=== PATIENT | male | born 1985 | race African-American/Black ===

== ENCOUNTER 2017-10-24 16:29 | Emergency (ER) | payer SELFPAY ==
[2017-10-24 16:30] VITALS: BP 143/81; PULSE 109; RESP 16; TEMP 36.6; O2SAT 98; BMI 32.1
--- NOTE | 2017-10-24 19:06 | EKG12_ITS ---
Test Reason : CP Blood Pressure : / mmHG Vent. Rate : 083 BPM Atrial Rate : 083 BPM P-R Int : 192 ms QRS Dur : 098 ms QT Int : 374 ms P-R-T Axes : 030 033 016 degrees QTc Int : 439 ms Normal sinus rhythm Normal ECG Confirmed by ALICIA PELLETIER MD ([id number]), medical transcription editor BENJAMIN LITTLE ([id number]) on 10/25/2017 1:36:10 PM Referred By: CHANDRAKANT Confirmed By:ALICIA PELLETIER MD
[2017-10-24 19:14] VITALS: BP 133/83; PULSE 85; RESP 16; O2SAT 97
[2017-10-24 19:15] VITALS: O2SAT 97
--- NOTE | 2017-10-24 19:16 | ED.VISSUMM ---
- ER Visit Summary Date of Service: 10/24/17 Chief Complaint: Chest pain History of Present Illness: The patient is a 31 M who presents for chest pain since yesterday morning. Patient states onset was while he was brushing his teeth and accidentally made himself vomit. He is having burning chest pain and pain that feels like indigestion, worse with eating. He has had decreased oral intake because of the pain and states he is very hungry. He has tried Prilosec without relief. He denies any fever, shortness of breath, cough or other associated complaints other than the chest pain. It does not change with position. Patient has no medical problems other than GERD. He is a smoker. Physical Examination: Vital signs: afebrile, hemodynamically stable, no hypoxia on room air General: well nourished, well developed, in no distress, appears uncomfortable Skin: warm, dry, no rash, no pallor, no subcutaneous emphysema in the chest or neck HEENT: normocephalic and atraumatic; PERRL, EOMI, moist mucous membranes Cardiovascular: regular rate and rhythm without murmurs, no peripheral edema, 2+ pulses all distal extremities, no rubs or crunches Respiratory: No increased work of breathing, lungs are clear to auscultation bilaterally, no rales, rhonchi or wheezing Abdominal: Abdomen is soft, tender in the epigastrium with normoactive bowel sounds, no guarding or rebound, no masses MSK: Moves all extremities, no deformities, normal strength Neuro: Awake and alert, oriented ?4. No facial droop, sensation and motor function intact and symmetric Test Results: Abnormal Lab Results 10/24/17 10/24/17 19:20 19:20 WBC 12.3 H RBC 5.28 Hgb 15.5 Hct 46.0 MCV 87.1 MCH 29.4 MCHC 33.7 RDW 15.4 H RDW Differential 49.0 H Plt Count 208 MPV 11.2 Immature Gran % (Auto) 0.100 Neut % (Auto) 57.9 Lymph % (Auto) 33.3 Bradford % (Auto) 7.8 Eos % (Auto) 0.7 Baso % (Auto) 0.2 Absolute Neuts (auto) 7.1 Absolute Lymphs (auto) 4.09 Total Counted Not Reportable Sodium 138 Potassium 3.7 Chloride 105 Carbon Dioxide 24.0 Anion Gap 9 BUN 15 Creatinine 0.99 Estim Creat Clear Calc 113.03 Est GFR (MDRD) Af Amer 111 Est GFR (MDRD) Non-Af 92 BUN/Creatinine Ratio 15.2 Glucose 88 Calcium 9.1 Total Bilirubin 0.50 AST 49 H ALT 38 Alkaline Phosphatase 101 Troponin I < 0.015 Total Protein 8.2 Albumin 4.0 Globulin 4.2 Albumin/Globulin Ratio 1.0 Lipase 82 Clinical Impression(s) from Imaging Studies Chest X-Ray 10/24/17 19:25 IMPRESSION: No acute thoracic pathology. Electronically Signed: Jose Ortiz, at 19:51 EDT Tel , Service support , Abdomen/Pelvis CT 10/24/17 20:41 IMPRESSION: Small hiatal hernia. Left renal cyst. Small fatty umbilical hernia. Electronically Signed: Carl Fairchild DO at 23:32 EDT Tel [phone], Service support , Chest CT 10/24/17 20:41 IMPRESSION: Small hiatal hernia. Electronically Signed: Carl Fairchild DO at 23:23 EDT Tel [phone], Service support , Medications Given Discontinued Medications Al Hydroxide/Mg Hydroxide (Mylanta Ii) 30 ml PO X1 ONE Stop: 10/24/17 19:07 Last Admin: 10/24/17 19:41 Dose: 30 ml Sodium Chloride () 1,000 mls @ 1,000 mls/hr IV .Q1H ONE Stop: 10/24/17 20:05 Last Admin: 10/24/17 19:40 Dose: 1,000 mls/hr Lidocaine HCl (Xylocaine Viscous) 15 ml PO X1 ONE Stop: 10/24/17 19:07 Last Admin: 10/24/17 19:41 Dose: 15 ml Morphine Sulfate () 4 mg IV X1 ONE Stop: 10/24/17 20:42 Last Admin: 10/25/17 00:06 Dose: Multi-Ingredient GI Drug () 1 ea PO X1 ONE Stop: 10/24/17 19:07 Last Admin: 10/24/17 19:41 Dose: 1 ea Ondansetron HCl (Zofran) 4 mg IV X1 ONE Stop: 10/24/17 20:43 Last Admin: 10/25/17 00:06 Dose: Pantoprazole Sodium (Protonix) 40 mg PO X1 ONE Stop: 10/24/17 23:57 Last Admin: 10/25/17 00:11 Dose: 40 mg Sucralfate (Carafate) 1 gm PO X1 ONE Stop: 10/24/17 23:59 Last Admin: 10/25/17 00:11 Dose: 1 gm Emergency Department Course and Treatment: Patient's symptoms occur mainly when he is trying to eat solid foods, and he is very hungry at this time due to decreased p.o. intake from pain. Patient was given a GI cocktail with improvement in his symptoms. Workup was performed showing a chest x-ray without sign of pneumothorax, pneumomediastinum, free air where it did not belong, pneumonia or other acute process. EKG showed no ischemic changes. Troponin negative. Lab work remarkable only for mild leukocytosis of 12.3 without a neutrophil predominance. Patient was feeling better after the GI cocktail, and thus was given a p.o. challenge of a sandwich. With the first bite he had return of severe symptoms. Thus a chest abdomen pelvis CT was performed to look for any pathology that would be causing his severe symptoms. Patient was given morphine and Zofran for additional symptom relief, but declined, as he stated he did not have pain if he was not eating. CT scan showed a small hiatal hernia, which patient states he is always had, but no other acute process to explain his symptoms. Patient wanted to go home, and he was prescribed Protonix and Carafate to use for help with symptoms. He is going to try a liquid diet and advance as tolerated depending on his pain. He will return if any concerns. He was given follow-up with primary care provider and we discussed he may end up needing an EGD performed if this continues to be an issue for him. Treatment Plan: [] Disposition: [] Impression: Acute esophagitis, odynophagia This note was generated with [employer] software. It may contain incorrect words, spelling, and punctuation that were not noted in review of the chart prior to signing ED Disposition - Plan for ED Patient: Disposition: Home or Assisted Living Chief Complaint: Chest Other Instructions: Esophagitis, Discharge Instructions: Eating a Soft Diet, ED GERD Prescriptions: Pantoprazole Sodium [Protonix] 40 mg PO DAILY 30 Days #30 tab Sucralfate [Carafate] 1 gm PO 4X/DAY #60 tab Referrals: Bishop Mondragon MD [STAFF PHYSICIAN] - As soon as possible Care Physician,No Primary [Primary Care Provider] - Additional Instructions: Please take the medications as prescribed to see if that helps with your pain with swallowing. Follow-up with the doctor on this paperwork for a reevaluation. You may need an upper endoscopy, where a doctor looks in your esophagus and stomach with a camera. If you have any worsening of your condition or any new concerning symptoms, please return immediately to the emergency department for another evaluation.
--- NOTE | 2017-10-24 19:25 | RAD_ITS ---
STUDY: X-RAY CHEST REASON FOR EXAM: Male, 31 years old. Chest pain TECHNIQUE: Frontal and lateral views of the chest COMPARISON: 05/25/2014 FINDINGS: The lungs are clear. There are no pleural effusions. There is no pneumothorax. The heart is normal in size. The visualized osseous structures are within normal limits. RAD/Chest PA and Lateral IMPRESSION: No acute thoracic pathology. Electronically Signed: Jose Ortiz, at 19:51 EDT Tel , Service support ,
[2017-10-24 19:30] LABS: Absolute Lymphocyte Count 4.09 X10^3/ul (0.83-4.51); Absolute Neutrophil Count 7.1 X10^3/uL (2.0-7.7); Basophil# 0.03 X10^3/uL; Basophil% 0.2 % (0-1); Eosinophil# 0.08 X10^3/uL; Eosinophils% 0.7 % (0-5); Hemoglobin 15.5 g/dl (13.0-16.5); Lymphocyte # 4.09 X10^3/ul (4.0); Lymphocyte % 33.3 % (19-41); Mean Corp Hgb Conc 33.7 g/gl (32-36); Mean Corpuscular Hgb 29.4 pg (27.0-32.0); Mean Corpuscular Volume 87.1 fL (80-94); Mean Platelet Vol. 11.2 fl (6.2-12.0); Monocyte# 0.96 X10^3/uL; Monocyte% 7.8 % (0-10); Neutrophil # 7.12 X10^3/uL (2.7-7.7); Neutrophil % 57.9 % (47-70); Platelet Count 208 K/mm3 (150-450); RBC Distribution Width CV 15.4 % (11.6-14.6); Red Blood Count 5.28 M/mm3 (4.6-6.2); White Blood Count 12.3 K/mm3 (4.4-11.0)
[2017-10-24 19:31] LABS: POSITIVE COUNT NO; POSITIVE DIFFERENTIAL NO; POSITIVE MORPHOLOGY NO
[2017-10-24] MEDS: 0.9% Normal Saline 1,000 ML 1000 ML IV (19:40)
[2017-10-24] MEDS: Mag Hydrox/Al Hydrox/Simeth 30 ML UDC PO (19:41)
[2017-10-24 19:53] LABS: AST(SGOT) 49 U/L (15-37); Alanine Aminotransfer ALT/SGPT 38 U/L (16-61); Alkaline Phosphatase 101 U/L (45-117); Anion Gap 9 (5-15); BUN 15 mg/dL (7-18); BUN/Creat Ratio 15.2 RATIO (10-20); Calcium,Total 9.1 mg/dL (8.5-10.1); Chloride 105 mmol/L (98-107); Creatinine, Serum 0.99 mg/dL (0.70-1.30); EST Glomerular Filtration Rate 92 mL/min (>60); Est Glom Filt Rate - Afr Amer 111 mL/min (>60); Estimated Creatinine Clearance 113.03 ml/min; Globulin 4.2 g/dL (2.2-4.2); Glucose 88 mg/dL (74-106); Lipase 82 U/L (73-393); Potassium 3.7 mmol/L (3.5-5.1); Protein, Total 8.2 g/dL (6.4-8.2); Sodium Level 138 mmol/L (136-145)
--- NOTE | 2017-10-24 20:41 | CT_ITS ---
STUDY: CT ABDOMEN AND PELVIS WITH CONTRAST REASON FOR EXAM: Male, 31 years old. Esophageal pain RADIATION DOSAGE (If Supplied By Facility): CTDIvol = ( 18.89 ) mGy, DLP = ( 1917.90 ) mGycm TECHNIQUE: Transaxial images were obtained from the dome of the diaphragm to the symphysis pubis without oral contrast. 100ML ml of Isovue 300 contrast was administered. Sagittal and coronal images were reconstructed. Individualized dose optimization techniques were used for this CT. COMPARISON: February 06, 2013 FINDINGS: The visualized lung bases are unremarkable. The visualized portions of the heart are within normal limits. Normal liver. Normal gallbladder and extrahepatic biliary system. Normal spleen. Normal pancreas. Normal bilateral adrenal glands. Normal right kidney. 8 mm cyst in the left kidney. Small hiatal hernia. Normal small intestine. Normal colon. The appendix is visualized and appears normal. Normal abdominal aorta. Normal inferior vena cava. Normal retroperitoneum. Normal urinary bladder. Stable fatty umbilical hernia. Normal osseous structures. CT/Abdomen/Pelvis WITH Contrast IMPRESSION: Small hiatal hernia. Left renal cyst. Small fatty umbilical hernia. Electronically Signed: Carl Fairchild DO at 23:32 EDT Tel [phone], Service support ,
--- NOTE | 2017-10-24 20:41 | CT_ITS ---
STUDY: CT CHEST WITH CONTRAST REASON FOR EXAM: Male, 31 years old. Esophageal pain RADIATION DOSAGE (If Supplied By Facility): CTDIvol = ( 18.89 ) mGy, DLP = ( 1917.90 ) mGycm TECHNIQUE: Transaxial imaging was performed following intravenous administration of 100ML ml of Isovue 300 contrast material. Individualized dose optimization techniques were used for this CT. COMPARISON: None. FINDINGS: The lungs are normal. There is no demonstrated pleural abnormality. Normal heart and pericardium. Normal mediastinum. Normal hilar regions. Normal enhanced pulmonary arteries. Normal aorta arch and descending thoracic aorta. Normal osseous structures. Small hiatal hernia. CT/Chest WITH Contrast IMPRESSION: Small hiatal hernia. Electronically Signed: Carl Fairchild DO at 23:23 EDT Tel [phone], Service support ,
--- NOTE | 2017-10-24 21:40 | ED.RN ---
PT REFUSED MORPHINE AND NAUSEA,ZOFRAN.
[2017-10-24 21:42] VITALS: BP 138/86; PULSE 84; RESP 16; O2SAT 99
[2017-10-24 23:18] VITALS: BP 135/87; PULSE 86; RESP 16; O2SAT 99
--- NOTE | 2017-10-25 00:02 | ED.DEP ---
ED Disposition - Plan for ED Patient: Disposition: Home or Assisted Living Chief Complaint: Chest Other Instructions: Esophagitis, ED GERD, Discharge Instructions: Eating a Soft Diet Prescriptions: Pantoprazole Sodium [Protonix] 40 mg PO DAILY 30 Days #30 tab Sucralfate [Carafate] 1 gm PO 4X/DAY #60 tab Referrals: Care Physician,No Primary [Primary Care Provider] - Bishop Mondragon MD [STAFF PHYSICIAN] - As soon as possible Additional Instructions: Please take the medications as prescribed to see if that helps with your pain with swallowing. Follow-up with the doctor on this paperwork for a reevaluation. You may need an upper endoscopy, where a doctor looks in your esophagus and stomach with a camera. If you have any worsening of your condition or any new concerning symptoms, please return immediately to the emergency department for another evaluation.
[2017-10-25] MEDS: Sucralfate 1 GM Tablet PO (00:11)
[2017-10-25] MEDS: Pantoprazole Sodium 40 MG Tablet PO (00:11)
== END 2017-10-25 00:16 | disposition home or self-care (01) ==
PROVIDERS: Emergency Provider Emergency Medicine
DX: K21.0 Gastro-esophageal reflux disease with esophagitis (principal); K44.9 Diaphragmatic hernia without obstruction or gangrene; R13.10 Dysphagia, unspecified; F17.200 Nicotine dependence, unspecified, uncomplicated
CPT/HCPCS: 71046; 71260; 74177; 80053; 83690; 84484; 85025; 93005; 96360; 96361; 99285; J7030; Q9967; A4216; J2405

== ENCOUNTER 2019-03-26 19:58 | Emergency (ER) | payer MEDICAID, SELFPAY ==
[2019-03-26 20:01] VITALS: BP 115/61; PULSE 94; RESP 17; TEMP 36.6; O2SAT 99; BMI 33.0
--- NOTE | 2019-03-26 20:11 | RAD_ITS ---
STUDY: X-RAY - LEFT FOOT CLINICAL: Male, 33 years old. LEFT FOOT PAIN. NKI TECHNIQUE: 3 view(s) of the foot. COMPARISON: None. FINDINGS: Normal talus, calcaneus, and tarsal bones. Normal visualized subtalar, talonavicular, calcaneocuboid, tarsal and tarsometatarsal articulations. Normal metatarsi. Normal metatarsophalangeal joint of the great toe. Normal tibial and fibular sesamoid bones. Normal interphalangeal joint of the great toe. Normal phalanges of the great toe. Normal second through fifth metatarsophalangeal joints. Normal interphalangeal joints and phalanges of the lesser toes. The soft tissue structures are unremarkable. RAD/Foot min 3 Views IMPRESSION: Normal x-ray examination of the foot. Electronically Signed: Nabeel Wilhelm, at 20:52 EST Tel , Service support ,
--- NOTE | 2019-03-26 21:50 | ED.VISSUMM ---
- ER Visit Summary Date of Service: 03/26/19 Chief Complaint: Traumatic left midfoot pain History of Present Illness: The patient is a 33 M with no past medical or surgical history. Patient is a he has atraumatic left foot pain for the last 6 days. Worse with walking. No redness or fever. No swelling. No prior history. No prior surgery. Physical Examination: Young male no acute distress vital signs stable afebrile. H EENT exam unremarkable. Lungs are clear. Heart regular rhythm no murmur. Abdomen soft nontender. Remedies moves all 4. Neurovascular intact. Left hip knee and ankle are nontender nonswollen full range of motion. Left foot he points to the midfoot is not tender is not swollen is not red. There is no gross bony deformity. There is no swelling. Dorsi plantarflexion intact. He is able to wiggle his toes. Normal touch sensation. Normal dorsalis pedis pulse. Negative for plantar fasciitis and no tenderness to the bottom of his foot. The foot is totally normal exam and nontender. Test Results: Left foot x-ray 3 views read by myself shows no acute abnormality. Also read by the radiologist. Emergency Department Course and Treatment: Discussed with patient most likely he strained his foot or has some inflammation. There is no signs of gout or infection there is no history or signs of trauma. X-rays negative. Treatment Plan: Ice to foot. Motrin for pain and inflammation. Follow-up if not improving. Return if worse. Disposition: Discharge Impression: Left foot pain suspect secondary to soft tissue inflammation This note was generated with [employer] dictation software. It may contain incorrect words, spelling, and punctuation that were not noted in review of the chart prior to signing ED Disposition - Plan for ED Patient: Referrals: Care Physician,No Primary [Primary Care Provider] -
--- NOTE | 2019-03-26 21:52 | ED.DEP ---
ED Disposition - Plan for ED Patient: Disposition: Home or Assisted Living Referrals: eRji Dunn DPM [STAFF PHYSICIAN] - 1 Week if not improving Additional Instructions: Ice to foot. Motrin for pain and inflammation. This should progressively improve if not follow-up with the sight effects specialist Dr. Dunn
== END 2019-03-26 22:01 | disposition home or self-care (01) ==
PROVIDERS: Emergency Provider Emergency Medicine
DX: M79.672 Pain in left foot (principal); Z72.0 Tobacco use
CPT/HCPCS: 73630; 99282

== ENCOUNTER 2021-11-04 08:10 | Emergency (ER) | payer OTHER, MEDICAID, SELFPAY ==
[2021-11-04 08:20] VITALS: BP 133/97; PULSE 99; RESP 22; TEMP 36.7; O2SAT 99; BMI 32.3
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
[2021-11-04 10:58] VITALS: PULSE 99; RESP 16
== END 2021-11-04 10:59 | disposition home or self-care (01) ==
PROVIDERS: Emergency Provider Emergency Medicine; Visit Provider Emergency Medicine
DX: S80.02XA Contusion of left knee, initial encounter (principal); Z87.891 Personal history of nicotine dependence; V44.6XXA Car passenger injured in collision with heavy transport vehicle or bus in traffic accident, initial encounter
CPT/HCPCS: 73564; 99285

== ENCOUNTER → 2021-11-26 | Outpatient (CLI) | payer OTHER, MEDICAID, SELFPAY ==
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
== END | disposition home or self-care (01) ==
LOC: MRI 07:59
PROVIDERS: PCP Family Medicine; Referring Provider Family Medicine; Visit Provider Family Medicine
DX: M23.90 Unspecified internal derangement of unspecified knee (principal)
CPT/HCPCS: 73721

== ENCOUNTER 2022-02-14 13:00 | Outpatient (RCR) | payer MEDICAID, OTHER, SELFPAY ==
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
--- NOTE | 2022-01-05 10:02 | HP.PTREVAL ---
Dr. Nelson Moscoso MD, It has been my pleasure to treat JONAS STEINER over the last 9 visits for PCL Tear Left Knee. Please see the progress note below for an update on the physical therapy plan of care! Subjective: Patient reports that his knee does not feel like it did before-still hurts- it can do his ADL's but anything outside of that its not okay. He reports that he has lots of cracking and popping and it has a lot of pain. He has swelling and feels very limited. 2-3/10 for his pain levels. He has had an MRI on his knee. Objective/Function: Objective: Posture: good throughout Gait: slightly antalgic- decreased stance on the left LE. SLS: 30 sec with a bent knee due to pain with full extension. ROM: 0-125 degrees with discomfort at end ranges. Strength: Core: fair, Hip: 4+/5, Ankle: 5/5 Tested with Dynamometer: Knee: Right: Extn: 89/93 -Flxn: 47/50 Left: Extn: 48/50 Flxn: 22/18 with severe pain. Plan Plan: 01/05/22: Refer back to MD for further evaluation Balance/Gait/Functional tests - Balance/Special Test Scores Lower Extremity Functional Score: 47 Goals Goal 1:: Patient will be I with HEP and progression Goal Time Frame: 4-6 Weeks Goal Progress: Progressing Goal 2:: Patient will ambulate >300 feet with a normalized gait pattern Goal Time Frame: 4-6 Weeks Goal Progress: Progressing Goal 3:: Patient will asc/desc 8 stairs recip with 1 HR and a normal pattern Goal Time Frame: 4-6 Weeks Goal Progress: Progressing Goal 4:: Patient will report 80% improvement Goal Time Frame: 4-6 Weeks Goal Progress: Progressing Anticipated Interventions Patient/Client Instruction: Educate patient on: Benefits of Fitness Program Therapeutic Exercise to Include: Strength training, Endurance training, Balance training, Coordination, Agility training, Body mechanics, Postural training, Flexibilty training, Gait and locomotor training, Neuromotor development, Dynamic Lumbar Stabilization, Scapular Strength/Stabilization For the Purpose of:: To improve muscle performance and motor function TENS: Yes Cryotherapy (ice pack, ice massage): Yes Thermo therapy (hot pack): Yes Ultrasound (thermal/non thermal): Yes Please do not hesitate to contact me at [phone] by phone or if you have questions or concerns regarding this new plan of care! Sincerely, JUMANA MoralesT
--- NOTE | 2022-02-14 13:22 | HP.PTDCSUM ---
It has been my pleasure to treat JONAS STEINER referred by Dr. Nelson Moscoso MD, with the diagnosis of PCL Tear Left Knee for a total of 18 visit(s). Discharge Date: Please see the following information for a summary of their discharge status. Subjective: Patient reports that the knee is good- he feels that he is 95%- the other 5% is due to not sure about running or turning quickly. No pain just doesn't always feel stable. He feels less buckling and shifting- he feels this happening with more than 8 stairs. Goes back to work the - he doesn't have an apt to see the MD yet. Left Knee Pain Intensity (Out of 10): 0 % Improvement: 95 Objective/Function: Objective: Posture: good throughout Gait: no deviation noted in walking or running SLS: 30 sec without loss of balance ROM: 0-130 degrees Strength: Core: fair, Hip: 5/5, Ankle: 5/5 Tested with Dynamometer: Knee: Left: Extn: 88 lbs Flexion: 35lbs with discomfort with flexion testing Goal 1:: Patient will be I with HEP and progression Goal Progress: Goal Met Goal 2:: Patient will ambulate >300 feet with a normalized gait pattern Goal Progress: Goal Met Goal 3:: Patient will asc/desc 8 stairs recip with 1 HR and a normal pattern Goal Progress: Progressing Goal 4:: Patient will report 80% improvement Goal Progress: Goal Met Plan: 02/14/22: Discharge to Home Exercise Program- encouraged to keep moving and call if questions. 01/05/22:Contine 2x a week for 6 weeks- No hamstring strengthening If there are questions or concerns regarding this patient's physical therapy, please feel free to call me at [phone]. Thank you for the referral of this patient. Sincerely, Arlene Alvarez, DPT Balance/Gait/Functional tests - Balance/Special Test Scores Lower Extremity Functional Score: 67
== END 2022-02-14 13:56 | disposition home or self-care (01) ==
LOC: PT 13:00
PROVIDERS: PCP Family Medicine; Referring Provider Orthopaedic Surgery Sports Medicine; Visit Provider Orthopaedic Surgery Sports Medicine
DX: S83.522D Sprain of posterior cruciate ligament of left knee, subsequent encounter
CPT/HCPCS: 97110; 97162; 97164